=== PATIENT | male | born 1970 | race Two or more races ===

== ENCOUNTER 2021-07-17 21:27 | Inpatient (IN) | payer OTHER ==
[~2021-07-17] VITALS: Ht 185.4 cm; Wt 74.8 kg
--- NOTE | 2021-07-17 21:55 | NUR ---
BIBS C/O LEFT SIDED ABDOMINAL PAIN X1DAY. TOOK ZOFRAN AT NOON WITHOUT RELIEF. PT ALERT AND ORIENTED X4 BREATHING EVEN AND UNLABORED URINE COLLECTED AND SENT TO LAB. ALL V/S STABLE.
[2021-07-17] MEDS ORDERED: MORPHINE SULFATE INJ 2 MG/ML DISP.SYRIN IV ONE (22:30)
[2021-07-17] MEDS ORDERED: ONDANSETRON HCL/PF 4 MG/2 ML VIAL IV ONE (22:30)
[2021-07-17] MEDS ORDERED: ONDANSETRON HCL/PF 4 MG/2 ML VIAL ONE (22:37)
[2021-07-17] MEDS ORDERED: MORPHINE SULFATE INJ 4 MG/ML DISP.SYRIN ONE (22:38)
[2021-07-17] MEDS ORDERED: IV NS 0.9% 1,000 ML BAG IV ONE (23:00)
[2021-07-17 23:06] LABS: BILIRUBIN,URINE NEGATIVE (NEGATIVE); COLOR,URINE YELLOW (YELLOW); LEUKOCYTE ESTERASE ,URINE NEGATIVE (NEGATIVE); NITRITE, URINE NEGATIVE (NEGATIVE); PROTEIN,URINE 100 mg/dl (NEGATIVE); UGLUCOSE NEGATIVE (NEGATIVE); UROBILINOGEN,URINE 0.2 EU/dL (0.2)
[2021-07-17 23:13] LABS: BASOPHILS % (AUTO) 0.4 % (0.0-2.0); EOSINOPHILS % (AUTO) 0.7 % (0.0-6.0); HEMATOCRIT 36 % (39-51); HEMOGLOBIN 10.1 g/dL (13.5-17.5); LYMPHOCYTES # (AUTO) 1.2 K/uL (0.8-4.8); LYMPHOCYTES % (AUTO) 11.1 % (20.0-44.0); MEAN CORPUSCULAR HGB CONC 28 g/dl (31.0-36.0); MEAN CORPUSCULAR VOLUME 67 fL (80-96); MONOCYTES # (AUTO) 0.7 K/uL (0.1-1.30); MONOCYTES % (AUTO) 6.4 % (2.0-12.0); NEUTROPHILS % (AUTO) 81.4 % (43.0-81.0); PLATELET COUNT (AUTO) 279 K/uL (150-450); RED BLOOD CELL COUNT(AUTO) 5.36 MIL/uL (4.5-6.0); WHITE BLOOD COUNT (AUTO) 11.1 K/uL (4.3-11.0)
[2021-07-17 23:25] LABS: BACTERIA,URINE None seen /HPF (None Seen); CALCIUM OXALATE CRYSTALS,UR Many /HPF (None Seen); RBC,URINE 0-2 /HPF (0-2); SQUAMOUS EPITHELIAL CELL,UR Few /HPF (None Seen); WBC,URINE 0-2 /HPF (0-3)
[2021-07-17 23:26] LABS: HYALINE CASTS, URINE Few /LPF (None Seen); MUCUS,URINE Moderate /LPF (None Seen)
[2021-07-17] MEDS ORDERED: LIDOCAINE VISCOUS 2% UD 15 ML UDC ONE (23:30)
--- NOTE | 2021-07-17 23:47 | NUR ---
16FR NG TUBE PLACED AT 65 IN R NARE. PLACEMENT CONFIRMED VIA AUSCULTATION. ORDER PLACED FOR JOYCE BECERRA. Addendum: 07/18/21 at 0008 by BREANN 16FR NG TUBE PLACED AT 53 IN R NARE. PLACEMENT CONFIRMED VIA AUSCULTATION. ORDER PLACED FOR JOYCE BECERRA.
--- NOTE | 2021-07-17 23:51 | NUR ---
YELENA MEYER AT PT'S BEDSIDE FOR NGT PLACEMENT
[2021-07-18] MEDS ORDERED: LIDOCAINE VISCOUS 2% UD 15 ML UDC ONE (00:01)
--- NOTE | 2021-07-18 00:13 | NUR ---
XRAY AT BEDSIDE
[2021-07-18 00:20] LABS: EOSINOPHILS % (MANUAL) 1 % (0-4); LYMPHOCYTES % (MANUAL) 9 % (16-48); MONOCYTES % (MANUAL) 5 % (0-11.0); NEUTROPHILS % (MANUAL) 85 (42-76)
[2021-07-18 00:30] LABS: ALANINE AMINOTRANSFERASE 26 U/L (12-78); ALBUMIN 3.7 g/dL (3.4-5.0); ALKALINE PHOSPHATASE 115 U/L (46-116); ASPARTATE AMINOTRANSFERASE 24 U/L (15-37); BILIRUBIN,DIRECT 0.2 mg/dL (0.0-0.2); BILIRUBIN,TOTAL 0.6 mg/dL (0.2-1.0); CARBON DIOXIDE 19 mmol/L (21-32); CHLORIDE 112 mmol/L (98-107); CREATININE 1.2 mg/dL (0.6-1.3); GLUCOSE 162 mg/dL (74-106); POTASSIUM 3.7 mmol/L (3.5-5.1); SODIUM SERUM 143 mmol/L (136-145); TOTAL PROTEIN, SERUM 7.5 g/dL (6.4-8.2); UREA NITROGEN, BLOOD 16 mg/dL (7-18)
--- NOTE | 2021-07-18 00:47 | NUR ---
NG TUBE ADVANCED 7CM PER RADIOLOGIST RECOMMENDATION. 16FR R ALBIN CURRENTLY AT 60.
--- NOTE | 2021-07-18 00:50 | NUR ---
[facility] PAGED
[2021-07-18] MEDS ORDERED: MORPHINE SULFATE INJ 4 MG/ML DISP.SYRIN ONE (00:57)
[2021-07-18] MEDS ORDERED: MORPHINE SULFATE INJ 2 MG/ML DISP.SYRIN IV ONE (01:00)
[2021-07-18 01:05] LABS: LIPASE > 1500 U/L (73-393)
--- NOTE | 2021-07-18 01:31 | NUR ---
[facility] PAGED ONCE AGAIN, WILL F/U
--- NOTE | 2021-07-18 01:35 | NUR ---
DEANGELO PATIÑO NURSES EDUCATOR WITH IAIN CASTILLO
--- NOTE | 2021-07-18 01:43 | NUR ---
[facility] PAGED
--- NOTE | 2021-07-18 01:50 | NUR ---
ASSIGNED TO 313-2
--- NOTE | 2021-07-18 02:02 | NUR ---
DR. CARIAS SPEAKING TO DR. CRAWFORD
[2021-07-18] MEDS ORDERED: IV NS 0.9% 1,000 ML IV PRN (02:30)
[2021-07-18] MEDS ORDERED: ACETAMINOPHEN 325 MG TABLET PO PRN (02:30)
--- NOTE | 2021-07-18 02:37 | NUR ---
REPORT GIVEN TO THOMAS FOR BONILLA.
[2021-07-18 02:52] VITALS: BP 142/85
--- NOTE | 2021-07-18 02:52 | NUR ---
MS RN RECEIEVING NOTE PATIENT RECEIVED FROM THE ER VIA [facility]. PATIENT RECEIVED STABLE W/ VS WNL. PATIENT A/OX4. NO S/S OF DISTRESS, BREATHING SYMMETRICAL. PATIENT APPEARS IN A PLEASANT AND HUMOROUS MOOD, BUT IS IN PAIN 9/10. NGT 16F IN RIGHT NARIS @60 INCHES. PATIENT IS SET TO WALL SUCTION VIA NGT W/ LOW INTERMITTENT SUCTIONING. IV ACCESS AT LW #20. PATIENT STARTED ON NS AT 75ML/HR. PATIENT IS KEPT NPO FOR NOW PER MD ORDER & D/T SBO AND PANCREATITIS. HE IS AMBULATORY W/ STANDBY ASSIST. PATIENT ORIENTED TO THE UNIT, GIVEN AND INSTRUCTED TYPING OFFICE WORKER DOSHI USE. SAFETY MEASURES IN PLACE: BED AT LOWEST POSITION, RAILS UP X2, CALL DOSHI WITHIN REACH. WILL CONTINUE TO MONITOR.
[2021-07-18 02:55] VITALS: BP 142/85
--- NOTE | 2021-07-18 03:02 | NUR ---
PT TRANSPORTED TO ROOM 313 WITHOUT INCIDENT. ALL PT BELONGINGS TRANSFERRED WITH PATIENT.
[2021-07-18] MEDS: ONDANSETRON HCL/PF 4 MG/2 ML VIAL IVP PRN ×3 (03:27→23:35)
[2021-07-18] MEDS: MORPHINE SULFATE INJ 2 MG/ML DISP.SYRIN IV PRN ×2 (03:28→07:38)
--- NOTE | 2021-07-18 06:29 | NUR ---
MS RN CLOSING NOTE PATIENT IN BED AWAKE. A/OX4. NO S/S OF DISTRESS, BREATHING SYMMETRICAL. LW #20 NS @75 ML/HR INTACT AND PATENT. SAFETY MEASURES IN PLACE: BED AT LOWEST POSITION, RAILS UP X2, CALL DOSHI WITHIN REACH. WILL ENDORSE TO NEXT SHIFT FOR BONILLA.
[2021-07-18 06:52] LABS: BASOPHILS % (AUTO) 0.1 % (0.0-2.0); EOSINOPHILS % (AUTO) 0.5 % (0.0-6.0); HEMATOCRIT 32 % (39-51); HEMOGLOBIN 9.3 g/dL (13.5-17.5); LYMPHOCYTES # (AUTO) 0.9 K/uL (0.8-4.8); MEAN CORPUSCULAR HGB CONC 29 g/dl (31.0-36.0); MEAN CORPUSCULAR VOLUME 67 fL (80-96); MONOCYTES # (AUTO) 0.8 K/uL (0.1-1.30); MONOCYTES % (AUTO) 7.8 % (2.0-12.0); NEUTROPHILS # (AUTO) 8.1 K/uL (1.8-8.9); NEUTROPHILS % (AUTO) 82.6 % (43.0-81.0); PLATELET COUNT (AUTO) 250 K/uL (150-450); RED BLOOD CELL COUNT(AUTO) 4.82 MIL/uL (4.5-6.0); WHITE BLOOD COUNT (AUTO) 9.8 K/uL (4.3-11.0)
[2021-07-18 07:07] LABS: ALANINE AMINOTRANSFERASE 23 U/L (12-78); ALBUMIN 3.2 g/dL (3.4-5.0); ALKALINE PHOSPHATASE 102 U/L (46-116); ASPARTATE AMINOTRANSFERASE 24 U/L (15-37); BILIRUBIN,TOTAL 0.4 mg/dL (0.2-1.0); CALCIUM, SERUM 8.3 mg/dL (8.5-10.1); CARBON DIOXIDE 15 mmol/L (21-32); CHLORIDE 115 mmol/L (98-107); CREATININE 0.9 mg/dL (0.6-1.3); GLUCOSE 123 mg/dL (74-106); MAGNESIUM 2.2 mg/dL (1.8-2.4); PHOSPHORUS 2.6 mg/dL (2.5-4.9); POTASSIUM 4.3 mmol/L (3.5-5.1); TOTAL PROTEIN, SERUM 6.7 g/dL (6.4-8.2); UREA NITROGEN, BLOOD 15 mg/dL (7-18)
[2021-07-18 07:15] LABS: CHOLESTEROL 85 mg/dL (<200); HDL CHOLESTEROL 33 mg/dL (40-60); LDL 47 mg/dL (0-99); TRIGLYCERIDES 110 mg/dL (30-150)
--- NOTE | 2021-07-18 07:30 | NUR ---
MS RN OPENING NOTE RECEIVED PATIENT IN BED AWAKE. A/OX4. COMPLAINS OF PAIN. WILL GIVE MORPHINE TANNER. BREATHING EVEN AND UNLABORED. LW #20 NS @75 ML/HR INTACT AND PATENT.PATIENT NPO. SAFETY MEASURES IN PLACE: BED AT LOWEST POSITION, RAILS UP X2, CALL DOSHI WITHIN REACH. WILL CONTINUE TO MONITOR.
[2021-07-18] MEDS ORDERED: FAMO20TA8 PO (08:12)
[2021-07-18] MEDS ORDERED: OMEP20TA5 PO (08:12)
[2021-07-18] MEDS ORDERED: VENL75CA62 PO (08:12)
[2021-07-18 08:36] LABS: LIPASE > 1500 U/L (73-393); SODIUM SERUM 142 mmol/L (136-145)
[2021-07-18] MEDS: PANTOPRAZOLE 40 MG VIAL IV SCH ×2 (09:12→09:15)
--- NOTE | 2021-07-18 11:00 | NUR ---
RN NOTES NEW ORDER FOR ATIVAN 1MG IV EVERY 8 HOURS PRN GIVEN BY JETHRO LOZANO.
[2021-07-18] MEDS: HYDROMORPHONE 1 MG/1 ML DISP.SYRIN IV PRN ×3 (11:12→20:34)
[2021-07-18 11:30] LABS: IRON, SERUM 12 ug/dl (50-175); TOTAL IRON BINDING CAPACITY 339 ug/dl (250-450)
[2021-07-18] MEDS: IV NS 0.9% 1,000 ML IV PRN (18:30)
--- NOTE | 2021-07-18 19:30 | NUR ---
MS RN CLOSING NOTE PATIENT IN BED AWAKE. A/OX4. NO PAIN NOTED AT THIS TIME. BREATHING EVEN AND UNLABORED. PATIENT ABLE TO AMBULATE TO BATHROOM.LW #20 NS @125 ML/HR INTACT AND PATENT.PATIENT NPO. SAFETY MEASURES IN PLACE: BED AT LOWEST POSITION, RAILS UP X2, CALL DOSHI WITHIN REACH.ALL DUE MEDS GIVEN ORDERED. WILL ENDORSE TO INCOMING SHIFT FOR BONILLA.
[2021-07-18 20:00] VITALS: BP 126/81
--- NOTE | 2021-07-18 20:02 | NUR ---
RN OPENING NOTES RECEIVED PT IN BED, AWAKE. AOx4, ABLE TO MAKE NEEDS KNOWN. ON RA AND TOLERATING WELL. NO SOB NOTED. NO S/SX OF RESPIRATORY DISTRESS NOTED. IV ACCESS IN L WRIST #20 RUNNING NS @125 ML/HR. SAFETY PRECAUTIONS IN PLACE: BED IN LOWEST, LOCKED POSITION, BRAKES ON. SIDERAILS UPx2, AND BRAKES ON. TABLE AND CALL LIGHT WITHIN REACH. WILL CONTINUE TO MONITOR.
[2021-07-18] MEDS ORDERED: LORAZEPAM INJ 2 MG/ML VIAL IV PRN (20:30)
--- NOTE | 2021-07-18 20:34 | NUR ---
ADMINISTERED DILAUDID PER MD ORDER. VS WNL. WILL CONTINUE TO MONITOR.
--- NOTE | 2021-07-18 23:35 | NUR ---
ADMINISTERED ZOFRAN AND ATIVAN PER MD ORDER. VS WNL. WILL CONTINUE TO MONITOR.
[2021-07-19] MEDS: IV NS 0.9% 1,000 ML IV PRN ×3 (02:34→22:31)
--- NOTE | 2021-07-19 07:25 | NUR ---
REPORT GIVEN. PT STABLE.
--- NOTE | 2021-07-19 07:30 | NUR ---
MS RN OPENING NOTES RECEIVED PATIENT IN BED, AWAKE, NO SIGNS OF ACUTE DISTRESS NOTED. ON ROOM AIR, TOLERATING WELL. NO C/O PAIN OR DISCOMFORT AT THIS TIME. WITH NG TUBE ON RIGHT NARE CONNECTED TO INTERMITTENT SUCTION. ON NPO. IV ACCESS ON RIGHT HAND INTACT AND PATENT, NS @125 ML/HR RUNNING, TOLERATING WELL. SAFETY MEASURES IN PLACE. WILL CONTINUE TO MONITOR.
[2021-07-19 08:26] LABS: CALCIUM, SERUM 8.1 mg/dL (8.5-10.1); CREATININE 0.9 mg/dL (0.6-1.3)
[2021-07-19 08:50] VITALS: BP 122/63
[2021-07-19] MEDS: PANTOPRAZOLE 40 MG VIAL IV SCH (09:00)
[2021-07-19] MEDS: HYDROMORPHONE 1 MG/1 ML DISP.SYRIN IV PRN ×4 (09:06→22:07)
[2021-07-19 11:58] LABS: POTASSIUM 3.5 mmol/L (3.5-5.1)
[2021-07-19] MEDS: ONDANSETRON HCL/PF 4 MG/2 ML VIAL IVP PRN ×2 (12:39→18:42)
[2021-07-19] MEDS: SOD FERRIC GLUC 125 MG in IV NS 0.9% 100 ML IV SCH (14:39)
[2021-07-19 16:52] VITALS: BP 141/70
[2021-07-19] MEDS ORDERED: DIATR MEGLU/DIATRIZOATE SODIUM 120 ML BOTTLE (GASTROGRAPHIN) ONE (16:58)
--- NOTE | 2021-07-19 17:00 | NUR ---
RN NOTES PATIENT PICKED-UP BY [employer] FOR XR SMALL BOWEL FOLLOW THROUGH.
--- NOTE | 2021-07-19 18:40 | NUR ---
RN NOTES PATIENT BACK FROM [facility] PROCEDURE. PER PATIENT NG-TUBE WAS ACCIDENTALLY PULLED OUT WHEN THEY WERE DOING THE PROCEDURE. PATIENT REQUESTING IF OK NOT TO PUT NGT FOR NOW. MD JETHRO LOZANO, MADE AWARE. PER , IF SBFT + FOR BOWEL OBSTRUCTION PATIENT MAY NEED NGT WITH INTERMITTENT LOW SUCTION. PATIENT MADE AWARE.
[2021-07-19] MEDS: LORAZEPAM INJ 2 MG/ML VIAL IV PRN (18:42)
--- NOTE | 2021-07-19 19:01 | NUR ---
MS RN CLOSING NOTES PATIENT IN BED, AWAKE, NO SIGNS OF ACUTE DISTRESS NOTED. ON ROOM AIR, TOLERATING WELL. NO C/O PAIN OR DISCOMFORT AT THIS TIME. ON NPO BUT OK TO HAVE ICE CHIPS. IV ACCESS ON RIGHT HAND INTACT AND PATENT, NS @125 ML/HR RUNNING, TOLERATING WELL. MEDICATED FOR PAIN AND NAUSEA ORDERED. SAFETY MEASURES IN PLACE. BED LOCKED AND IN LOWEST POSITION, SR UP, CALL LIGHT PLACED WITHIN EASY REACH. WILL ENDORSE TO NEXT SHIFT.
--- NOTE | 2021-07-19 19:10 | NUR ---
RN NOTES; RECEIVED AWAKE ON BED, PLEASANT PERSONALITY, A/OX4, CONVERSANT, ORIENTED TO UNIT AN STAFF, IV CANNULA RH G#20 IVF OF NS AT 125 ML/HR ONGOING, AMBULATORY, SKIN IS INTACT, PER ENDORSEMENT HE REFUSE FOR NGT RE-INSERTION, IS AWARE, PER ENDORSEMENT SMALL BOWEL FOLLOW THROUGH DONE, IF RESULT HAS SMALL BOWEL OBSTRUCTION, NEED TO REINSERT NG-TUBE, BUT IF NOT NO NEED TO REINSERT NGT. -PATIENT IS STABLE NO PAIN OR DISCOMFORT AT THIS TIME, KEPT MONITORED.
[2021-07-19 20:00] VITALS: BP 125/70
--- NOTE | 2021-07-19 22:07 | NUR ---
RN NOTES: -ASKING FOR HIS ZOFRAN BUT HE IS NOT YET DUE,HE VERBALIZED HE HAS PAIN AND ASKING FOR HIS PAIN MEDICATION, REQUEST FOR HIS IV PAIN MEDS, GIVEN PER PATIENT REQUEST.
--- NOTE | 2021-07-19 22:31 | NUR ---
RN NOTES: IVF CONSUMED, STARTED WITH NEW BOTTLE, UNABLE TO SCAN, MANUALLY ENTER THE BARCODE,NS AT 125 ML/HR, VIA INFUSION PUMP.
[2021-07-20] MEDS: ONDANSETRON HCL/PF 4 MG/2 ML VIAL IVP PRN ×3 (00:42→23:05)
--- NOTE | 2021-07-20 00:43 | NUR ---
RN NOTES: FEELING NAUSEATED, NO VOMITING, REQUEST FOR HIS ZOFRAN, GIVEN.
[2021-07-20 07:41] LABS: CALCIUM, SERUM 8.1 mg/dL (8.5-10.1); CREATININE 0.8 mg/dL (0.6-1.3); POTASSIUM 3.2 mmol/L (3.5-5.1)
--- NOTE | 2021-07-20 07:50 | NUR ---
MS RN OPENING NOTE Patient in bed, asleep. A/O x 4. On room air, breathing evenly and unlabored. No SOB or s/s of distress noted. IV access on Right hand #20G infusing NS at 125 ml/hr. NPO status maintained. Safety precautions in place: bed in low, locked position; sideraisl up x 2; call light within reach. will continue to monitor.
--- NOTE | 2021-07-20 07:52 | NUR ---
RN NOTES: ABLE TO SLEEP AND REST, NO MORE NAUSEA AND VOMITING, FOR LABS THIS MORNING, CONTINUE HYDRATION, ENDORSED TO MORNING SHIFT NURSE RESULT YESTERDAY OF X-RAY ABDOMEN NO EVIDENCE OF SBO, NGT NOT REINSERT ANYMORE, F/U IN THE MORNING IF HE STILL NEED,ENDORSED FOR CONTINUITY OF CARE.
[2021-07-20 08:00] VITALS: BP 106/70
--- NOTE | 2021-07-20 08:58 | NUR ---
RN NOTE Patient complained of Nausea, PRN Zofran given. will continue to monitor.
[2021-07-20] MEDS: PANTOPRAZOLE 40 MG VIAL IV SCH (08:59)
[2021-07-20] MEDS: HYDROMORPHONE 1 MG/1 ML DISP.SYRIN IV PRN ×4 (09:00→20:56)
[2021-07-20] MEDS: IV NS 0.9% 1,000 ML IV PRN ×2 (09:05→23:05)
[2021-07-20] MEDS: POTASSIUM CL. PREMIX PERIPHER. 50 ML IV SCH ×4 (10:11→13:13)
[2021-07-20] MEDS: SOD FERRIC GLUC 125 MG in IV NS 0.9% 100 ML IV SCH (14:52)
[2021-07-20 16:00] VITALS: BP 121/70
[2021-07-20] MEDS ORDERED: HYDROCODONE/APAP 5/325MG TABLET PO PRN (19:00)
--- NOTE | 2021-07-20 19:25 | NUR ---
MS RN OPENING NOTE: RECEIVED REPORT AT PATIENT'S BEDSIDE. PATIENT IS AWAKE, A&OX4, COMMUNICATIVE. IN NAD AND VSS AT THIS TIME. C/O LOWER ABDOMINAL PAIN 6-8/10 PER PATIENT REPORTS. PATIENT ABLE TO AMBULATE INDEPENDENTLY WITH STEADY GAIT. NORMOACTIVE BS X4. PATIENT ABLE TO TOLERATE CLEAR LIQUIDS WITHOUT COMPLICATION (N/V/D). BED IN LOW/LOCKED POSITION. HOB ELEVATED TO SEMI-FOWLERS POSITION. SIDE RAILS UP X2. PATIENT DEMONSTRATES ABILITY TO USE CALL LIGHT AND VERBALIZE NEEDS EFFECTIVELY. CALL LIGHT AND FREQUENTLY USED ITEMS WITHIN REACH.
--- NOTE | 2021-07-20 19:45 | NUR ---
MS RN CLOSING NOTE Patient in bed, asleep. A/O x 4. On room air, breathing evenly and unlabored. No SOB or s/s of distress noted. IV access on Right hand #20G infusing NS at 125 ml/hr. Diet changed to Clear liquids. Pain meds given when needed. All needs attended to. Due meds given. Safety precautions in place: bed in low, locked position; sideraisl up x 2; call light within reach. Will endorse to table games shift manager nurse for BONILLA.
[2021-07-20 20:00] VITALS: BP 137/76
[2021-07-20] MEDS: LORAZEPAM INJ 2 MG/ML VIAL IV PRN (23:06)
--- NOTE | 2021-07-21 00:52 | NUR ---
MS RN NOTE: PATIENT'S R HAND OBSERVED TO BE SWOLLEN. D/C'D R HAND IV INFUSING FLUIDS. D/C'D L WRIST IV IV HURT/BOTHERS PATIENT PER HIS REPORT. NEW IV STARTED TO R INNER FA, 2O GAUGE ON FIRST ATTEMPT, POSITIVE BLOOD RETURN OBSERVED. IV CONTINUOUS FLUIDS RESUMED WITHOUT COMPLICATION.
[2021-07-21] MEDS: HYDROMORPHONE 1 MG/1 ML DISP.SYRIN IV PRN ×5 (01:11→19:50)
[2021-07-21 07:22] LABS: CALCIUM, SERUM 8.1 mg/dL (8.5-10.1); CREATININE 0.8 mg/dL (0.6-1.3); POTASSIUM 3.2 mmol/L (3.5-5.1)
--- NOTE | 2021-07-21 07:39 | NUR ---
MS RN CLOSING NOTE: REPORTED OFF TO AM SHIFT RN AT PATIENT'S BEDSIDE. PATIENT IS AWAKE, A&OX4, COMMUNICATIVE. IN NAD AND VSS AT THIS TIME. PATIENT MEDICATED WITH PRN ANALGESICS FOR C/O PAIN AND ATIVAN 1MG IVP FOR C/O ANXIETY AND RESTLESSNESS. PATIENT ABLE TO AMBULATE INDEPENDENTLY WITH STEADY GAIT. NORMOACTIVE BS X4. PATIENT ABLE TO TOLERATE CLEAR LIQUIDS WITHOUT COMPLICATION (NO N/V/D). BED IN LOW/LOCKED POSITION. HOB ELEVATED TO SEMI-FOWLERS POSITION. SIDE RAILS UP X2. PATIENT DEMONSTRATES ABILITY TO USE CALL LIGHT AND VERBALIZE NEEDS EFFECTIVELY. CALL LIGHT AND FREQUENTLY USED ITEMS WITHIN REACH.
--- NOTE | 2021-07-21 07:43 | NUR ---
RN OPENING NOTES PATIENT AWAKE IN BED RESTING, A/O X4. NO S/S OF PAIN NOTED AT THIS TIME. ON ROOM AIR, NO DISTRESS OR SHORTNESS OF BREATH NOTED. IV ACCESS LFA #20G, INTACT, PATENT AND FLUSHING WELL. FALL AND SAFETY MEASURES IN PLACE, BED ALARM ON, BED IN LOW AND LOCK POSITION, CALL LIGHT AND TABLE WITHIN EASY REACH, SIDE RAILS UP X2. WILL CONTINUE TO MONITOR.
[2021-07-21 08:00] VITALS: BP 109/73
[2021-07-21] MEDS: ONDANSETRON HCL/PF 4 MG/2 ML VIAL IVP PRN ×2 (08:16→15:21)
[2021-07-21] MEDS: PANTOPRAZOLE 40 MG VIAL IV SCH (08:17)
[2021-07-21] MEDS ORDERED: PANTOPRAZOLE 40 MG TABLET.DR PO SCH (09:00)
[2021-07-21] MEDS ORDERED: POTASSIUM CHLORIDE 20 MEQ POWDER PACKET PO ONE (10:00)
[2021-07-21] MEDS: VENLAFAXINE XR 75 MG CAP.SR.24H PO SCH (11:51)
[2021-07-21] MEDS ORDERED: POTASSIUM CHLORIDE 20 MEQ POWDER PACKET PO SCH (14:00)
[2021-07-21] MEDS: SOD FERRIC GLUC 125 MG in IV NS 0.9% 100 ML IV SCH (15:22)
[2021-07-21 16:00] VITALS: BP 138/84
--- NOTE | 2021-07-21 18:38 | NUR ---
RN CLOSING NOTES PATIENT AWAKE IN BED RESTING, A/O X4. NO S/S OF PAIN NOTED AT THIS TIME. ON ROOM AIR, NO DISTRESS OR SHORTNESS OF BREATH NOTED. IV ACCESS LFA #20G, INTACT, PATENT AND FLUSHING WELL. FALL AND SAFETY MEASURES IN PLACE, BED ALARM ON, BED IN LOW AND LOCK POSITION, CALL LIGHT AND TABLE WITHIN EASY REACH, SIDE RAILS UP X2. WILL ENDORSE TO TRUCK DRIVER INSTRUCTOR.
--- NOTE | 2021-07-21 19:20 | NUR ---
MS RN OPENING NOTE: RECEIVED REPORT AT PATIENT'S BEDSIDE. PATIENT IS AWAKE, A&OX4, COMMUNICATIVE. IN NAD AND VSS AT THIS TIME. C/O INTERMITTENT LOWER ABDOMINAL PAIN 6-8/10 PER PATIENT REPORTS. PATIENT ABLE TO AMBULATE INDEPENDENTLY WITH STEADY GAIT. NORMOACTIVE BS X4. NO ABDOMINAL DISTENTION OBSERVED. L INNER FA IV #20 GAUGE INFUSING IV FLUIDS WITHOUT COMPLICATION. NO S/SX OF ERYTHEMA/INFILTRATION TO OR SURROUNDING IV INSERTION SITE. DRESSING TO SITE C/D/I. PATIENT ABLE TO TOLERATE CLEAR LIQUIDS AND SOME SOFT FOODS WITHOUT COMPLICATION (NO N/V/D). BED IN LOW/LOCKED POSITION. HOB ELEVATED TO SEMI-FOWLERS POSITION. SIDE RAILS UP X2. PATIENT DEMONSTRATES ABILITY TO USE CALL LIGHT AND VERBALIZE NEEDS EFFECTIVELY. CALL LIGHT AND FREQUENTLY USED ITEMS WITHIN REACH.
[2021-07-21] MEDS: LORAZEPAM INJ 2 MG/ML VIAL IV PRN (19:50)
[2021-07-21 20:00] VITALS: BP 128/79
[2021-07-22] MEDS: HYDROMORPHONE 1 MG/1 ML DISP.SYRIN IV PRN ×3 (01:08→10:01)
[2021-07-22] MEDS: ONDANSETRON HCL/PF 4 MG/2 ML VIAL IVP PRN (05:52)
[2021-07-22] MEDS: LORAZEPAM INJ 2 MG/ML VIAL IV PRN (05:52)
[2021-07-22] MEDS ORDERED: PANTOPRAZOLE 40 MG TABLET.DR PO SCH (07:30)
--- NOTE | 2021-07-22 07:30 | NUR ---
MS RN OPENING NOTES RECEIVED PATIENT ON BED AWAKE AND A/O X4. ON ROOM AIR TOLERATING WELL. NO SOB NOTED. NOT IN DISTRESS. WITH NO COMPLAINTS OF PAIN OR DISCOMFORT AT THIS TIME. WITH IV ACCESS AT LEFT FOREARM G20 SALINE LOCKED, PATENT AND INTACT. SAFETY MEASURES IN PLACED. CALL LIGHT WITHIN REACH. BED ON LOWEST LOCKED POSITION, SIDE RAILS UP X2. WILL CONTINUE TO MONITOR.
--- NOTE | 2021-07-22 07:35 | NUR ---
MS RN CLOSING NOTE: PATIENT'S EYES CLOSED, RR EVEN AND UNLABORED. IN NAD AND VSS AT THIS TIME. MEDICATED PRN ATC FOR C/O NAUSEA, RESTLESSNESS AND PAIN. PATIENT ABLE TO AMBULATE INDEPENDENTLY WITH STEADY GAIT. NORMOACTIVE BS X4. NO ABDOMINAL DISTENTION OBSERVED. L INNER FA IV #20 GAUGE SL. FLUSHED AND PATENT. NO S/SX OF ERYTHEMA/INFILTRATION TO OR SURROUNDING IV INSERTION SITE. DRESSING TO SITE C/D/I. PATIENT ABLE TO TOLERATE CLEAR LIQUIDS AND SOME SOFT FOODS WITHOUT COMPLICATION (NO N/V/D). BED IN LOW/LOCKED POSITION. HOB ELEVATED TO SEMI-FOWLERS POSITION. SIDE RAILS UP X2. PATIENT DEMONSTRATES ABILITY TO USE CALL LIGHT AND VERBALIZE NEEDS EFFECTIVELY. CALL LIGHT AND FREQUENTLY USED ITEMS WITHIN REACH.
[2021-07-22 08:00] VITALS: BP 108/74
[2021-07-22 08:08] LABS: CALCIUM, SERUM 8.7 mg/dL (8.5-10.1); CREATININE 0.9 mg/dL (0.6-1.3); POTASSIUM 3.3 mmol/L (3.5-5.1)
[2021-07-22 08:18] LABS: MAGNESIUM 1.8 mg/dL (1.8-2.4)
[2021-07-22] MEDS: VENLAFAXINE XR 75 MG CAP.SR.24H PO SCH (08:55)
[2021-07-22] MEDS ORDERED: POTASSIUM CHLORIDE 20 MEQ POWDER PACKET PO SCH (10:00)
--- NOTE | 2021-07-22 13:08 | NUR ---
MS AERONAUTICAL PROJECT ENGINEER NOTES PATIENT WAS SEEN BY DR. LOZANO AND ORDERED PATIENT FOR DISCHARGE TO HOME. DISCHARGE INSTRUCTION AND EDUCATION PROVIDED TO PATIENT AND EXPLAINED MEDICATIONS AND PRESCRIPTIONS. PATIENT VERBALIZED UNDERSTANDING. DISCHARGE FORM AND BELONGINGS LIST FORM SIGNED BY PATIENT. ALL BELONGINGS ACCOUNTED FOR. NAME WRIST BAND AND IV LINE REMOVED. ACCOMPANIED PATIENT TO THE [facility] AMBULATORY. PATIENT WAS PICKED UP BY HIS MOM AND LEFT IN STABLE CONDITION. MD AND CHARGE NURSE ARE AWARE OF THE DISCHARGE.
== END 2021-07-22 13:00 | disposition home or self-care (01) | DRG 439 ==
LOC: ER 21:35 → MED 07-18 01:55
PROVIDERS: ADMIT Nurse Practitioner Acute Care; ATTEND Nurse Practitioner Acute Care
DX: K85.90 Acute pancreatitis without necrosis or infection, unspecified (principal); K50.90 Crohn's disease, unspecified, without complications; Z90.49 Acquired absence of other specified parts of digestive tract; K21.9 Gastro-esophageal reflux disease without esophagitis; D50.9 Iron deficiency anemia, unspecified; E87.6 Hypokalemia; R73.9 Hyperglycemia, unspecified; K43.9 Ventral hernia without obstruction or gangrene; Z20.822 Contact with and (suspected) exposure to COVID-19; Z79.899 Other long term (current) drug therapy
CPT/HCPCS: 36415; 74018; 74250-TC; 80048-TC; 80053-TC; 80061-TC; 80076-TC; 81001; 83540-TC; 83690-TC; 83735-TC; 84100-TC; 85025-TC; 87081-TC; 93307-TC; C9113; C9803; G0378; J1170; J2060; J2270; J2405; J2916; J3480; J7030; J7050; Q9963

== ENCOUNTER 2021-09-26 21:58 | Inpatient (IN) | payer OTHER ==
[~2021-09-26] VITALS: Ht 185.4 cm; Wt 95.4 kg
[~2021-09-26 21:58] MED LIST: FAMO20TA8 PO; OMEP20TA5 PO; VENL75CA62 PO
--- NOTE | 2021-09-26 22:09 | NUR ---
[id number] FROM HOME C/O LEFT SIDED ABDOMINAL PAIN X1DAY +N/V/D. PATIENT ALERT AND ORIENTED X3. AMBULATORY WITH NON LABORED BREATHING AWAITING MD WOO
--- NOTE | 2021-09-26 22:13 | NUR ---
URINE COLLECTED AND SENT TO LAB
--- NOTE | 2021-09-26 22:20 | NUR ---
20G IV LINE STABLISHED AT [facility]. BLOOD DRAWN AND SENT TO LAB.
[2021-09-26] MEDS ORDERED: IV NS 0.9% 1,000 ML BAG IV ONE (22:30)
[2021-09-26] MEDS ORDERED: ONDANSETRON HCL/PF 4 MG/2 ML VIAL IVP ONE (22:30)
[2021-09-26] MEDS ORDERED: MORPHINE SULFATE INJ 2 MG/ML DISP.SYRIN IV ONE (22:30)
[2021-09-26] MEDS ORDERED: ONDANSETRON HCL/PF 4 MG/2 ML VIAL ONE (22:31)
[2021-09-26] MEDS ORDERED: MORPHINE SULFATE INJ 4 MG/ML DISP.SYRIN ONE (22:31)
[2021-09-26 22:41] LABS: BASOPHILS % (AUTO) 0.4 % (0.0-2.0); EOSINOPHILS % (AUTO) 1.6 % (0.0-6.0); HEMATOCRIT 38 % (39-51); LYMPHOCYTES # (AUTO) 1.9 K/uL (0.8-4.8); LYMPHOCYTES % (AUTO) 22.3 % (20.0-44.0); MEAN CORPUSCULAR HGB CONC 29 g/dl (31.0-36.0); MEAN CORPUSCULAR VOLUME 62 fL (80-96); MONOCYTES # (AUTO) 0.5 K/uL (0.1-1.30); MONOCYTES % (AUTO) 6.3 % (2.0-12.0); NEUTROPHILS % (AUTO) 69.4 % (43.0-81.0); PLATELET COUNT (AUTO) 251 K/uL (150-450); RED BLOOD CELL COUNT(AUTO) 6.06 MIL/uL (4.5-6.0); WHITE BLOOD COUNT (AUTO) 8.7 K/uL (4.3-11.0)
[2021-09-26 22:41] LABS: BILIRUBIN,URINE NEGATIVE (NEGATIVE); COLOR,URINE YELLOW (YELLOW); LEUKOCYTE ESTERASE ,URINE NEGATIVE (NEGATIVE); NITRITE, URINE NEGATIVE (NEGATIVE); PROTEIN,URINE NEGATIVE (NEGATIVE); UGLUCOSE NEGATIVE (NEGATIVE); UROBILINOGEN,URINE 0.2 EU/dL (0.2)
--- NOTE | 2021-09-26 22:44 | NUR ---
GOING TO CT
--- NOTE | 2021-09-26 22:57 | NUR ---
PT RETURNED FROM CT
[2021-09-26 23:05] LABS: BACTERIA,URINE None seen /HPF (None Seen); MUCUS,URINE Few /LPF (None Seen); RBC,URINE 0-2 /HPF (0-2); SQUAMOUS EPITHELIAL CELL,UR Few /HPF (None Seen); WBC,URINE 0-2 /HPF (0-3)
[2021-09-26 23:11] LABS: ALANINE AMINOTRANSFERASE 25 U/L (12-78); ALBUMIN 3.7 g/dL (3.4-5.0); ALKALINE PHOSPHATASE 124 U/L (46-116); ASPARTATE AMINOTRANSFERASE 18 U/L (15-37); BILIRUBIN,DIRECT 0.1 mg/dL (0.0-0.2); BILIRUBIN,TOTAL 0.5 mg/dL (0.2-1.0); CALCIUM, SERUM 8.8 mg/dL (8.5-10.1); CARBON DIOXIDE 21 mmol/L (21-32); CHLORIDE 107 mmol/L (98-107); CREATININE 0.9 mg/dL (0.6-1.3); GLUCOSE 106 mg/dL (74-106); LIPASE 79 U/L (73-393); POTASSIUM 3.8 mmol/L (3.5-5.1); SODIUM SERUM 141 mmol/L (136-145); TOTAL PROTEIN, SERUM 7.1 g/dL (6.4-8.2); UREA NITROGEN, BLOOD 14 mg/dL (7-18)
[2021-09-27] MEDS ORDERED: LIDOCAINE VISCOUS 2% UD 15 ML UDC ONE ×2 (00:05→05:41)
[2021-09-27] MEDS ORDERED: MORPHINE SULFATE INJ 4 MG/ML DISP.SYRIN ONE ×4 (00:05→07:42)
[2021-09-27] MEDS ORDERED: LIDOCAINE VISCOUS 2% UD 15 ML UDC MM ONE (00:30)
--- NOTE | 2021-09-27 00:40 | NUR ---
hussein gleason md on the phone with dr. gipson
--- NOTE | 2021-09-27 00:44 | NUR ---
NG TUBE 16FR INSERTED AT 65. PLACEMENT CHECHED VIA AUSCULTATION. XRAY ORDERED FOR PLACEMENT CONFIRMATION.
--- NOTE | 2021-09-27 02:05 | NUR ---
CALLED [facility] TO FOLLOW UP REGARDING TRANSFER
--- NOTE | 2021-09-27 02:25 | NUR ---
XRAY RESULT SHOWED COILING OF NGTUBE. DESPITE TUBE READJUSTMENT ATTEMPTS, SECONDARY XRAY SHOWED NGTUBE COILING. NGTUBE REMOVED AND PT DID NOT WISH FOR REINSERTION AT THIS TIME.
[2021-09-27] MEDS ORDERED: MORPHINE SULFATE INJ 2 MG/ML DISP.SYRIN IV ONE ×3 (02:30→05:30)
--- NOTE | 2021-09-27 04:20 | NUR ---
FOLLOWED UP WITH [facility]. WAS TOLD THEY ARE WAITING FOR ROOM AVAILABOLITY AT [facility] AND HAVE NO ETA CURRENTLY.
--- NOTE | 2021-09-27 05:26 | NUR ---
Spoke with Gal, [facility] called to inform that they were unable to find bed at a [facility]. Pt is authorized to stay. auth# [id number]
--- NOTE | 2021-09-27 05:32 | NUR ---
epic panel paged
[2021-09-27] MEDS ORDERED: ACETAMINOPHEN 325 MG TABLET PO PRN (06:00)
[2021-09-27] MEDS ORDERED: Z GUARD REMEDY 4 OZ OINT TP PRN (06:00)
[2021-09-27] MEDS ORDERED: ONDANSETRON HCL/PF 4 MG/2 ML VIAL ONE (07:41)
[2021-09-27] MEDS: ONDANSETRON HCL/PF 4 MG/2 ML VIAL IVP PRN ×4 (07:50→23:05)
[2021-09-27] MEDS: MORPHINE SULFATE INJ 4 MG/ML DISP.SYRIN IV PRN ×3 (07:50→12:00)
[2021-09-27] MEDS: ZOSYN IVPB 3.375 G in IV D5W 50ml IV ONE (07:51)
--- NOTE | 2021-09-27 07:54 | NUR ---
REPORT GIVEN TO NURSE GRAHAM FOR BONILLA
[2021-09-27] MEDS: IV NS 0.9% 1,000 ML IV PRN ×2 (07:57→08:48)
[2021-09-27] MEDS: PANTOPRAZOLE 40 MG TABLET.DR PO SCH (08:00)
[2021-09-27] MEDS ORDERED: PANTOPRAZOLE 40 MG TABLET.DR PO ONE (08:00)
[2021-09-27] MEDS ORDERED: NAPR-1009 PO (08:15)
--- NOTE | 2021-09-27 08:16 | NUR ---
PT TRANSFERRED TO [facility] IN STABLE CONDITION.
[2021-09-27 08:30] VITALS: BP 143/84
--- NOTE | 2021-09-27 09:19 | NUR ---
MS RN ADMITTING NOTES ADMITTED TO UNIT A 51 Y/O MALE VIA GURNEY WITH DIAGNOSIS OF SMALL BOWEL OBSTRUCTION. PT IS A/O X4. ABLE TO MAKE NEEDS KNOWN, VERBALIZED THAT ABDOMINAL PAIN IS TOLERABLE AT THIS TIME. ORIENTED TO STAFF AND UNIT. PT ON ROOM AIR, TOLERATING WELL, BREATHING EVEN AND UNLABORED. PT WITH NGT-TUBE ON LEFT NARE WITH LIGHT BROWNISH SECRETIONS NOTED. IV ACCESS PRESENT ON RAC G#20, IVF OF NS @ 75ML/HR STARTED. PT MAINTAINED ON NPO AT THIS TIME PER MD ORDER. SKIN IS INTACT. LUNGS CLEAR ON AUSCULTATION. ABDOMEN SOFT, SLIGHT DISTENTION ON RIGHT LOWER QUADRANT WITH POSITIVE BOWEL SOUNDS ON FOUR QUADRANTS NOTED. SAFETY MEASURES INITIATED: BED PLACED IN LOWEST LOCKED POSITION, SIDE-RAILS UP X2. AND CALL LIGHT PLACED W/I EASY REACH OF PT. WILL CONTINUE TO MONITOR.
[2021-09-27] MEDS: PIPERACILLIN /TAZOBACTAM 3.375 G in IV D5W 100 ML IV SCH ×2 (11:55→19:55)
[2021-09-27] MEDS ORDERED: DIATR MEGLU/DIATRIZOATE SODIUM 120 ML BOTTLE (GASTROGRAPHIN) ONE (13:39)
[2021-09-27 16:00] VITALS: BP 130/80
[2021-09-27] MEDS: HYDROMORPHONE 1 MG/1 ML DISP.SYRIN IV PRN ×3 (16:16→22:31)
--- NOTE | 2021-09-27 16:17 | NUR ---
RN NOTES PT COMPLAIN OF LEFT SIDE MIDDLE ABDOMINAL PAIN WITH PAIN SCALE LEVEL OF 9/10. DILAUDID GIVEN AT 1MG IVP ORDERED PRN AT 1616. PT ALSO COMPLAINED OF N/V WITH X2 VOMITING, ZOFRAN 4MG IVP GIVEN ORDERED PRN. WILL MONITOR AND REASSESS PT.
--- NOTE | 2021-09-27 16:22 | NUR ---
RN NOTES SPECIMEN FOR MRSA OF RIGHT NARE OBTAINED AND CALLED LAB TO PICK-UP SPECIMEN.
--- NOTE | 2021-09-27 18:23 | NUR ---
MS RN CLOSING NOTES PT AWAKE AND RESTING IN BED AT THIS TIME. A/O X4. ABLE TO MAKE NEEDS KNOWN. AMBULATORY WITH STEADY GAIT. ON ROOM AIR, TOLERATING WELL, BREATHING EVEN AND UNLABORED. NGT-TUBE ON LEFT NARE IN PLACE CONNECTED TO LOW SUCTION WITH LIGHT BROWNISH SECRETIONS NOTED. NPO MAINTAINED ORDERED. IV ACCESS ON RAC G#20, IVF OF NS @ 75ML/HR INFUSING WELL, NO S/SX OF INFILTRATIONS NOTED. ALL NEEDS AND CARE ATTENDED WELL. SAFETY MEASURES INITIATED: BED PLACED IN LOWEST LOCKED POSITION, SIDE-RAILS UP X2 AND CALL LIGHT PLACED W/I EASY REACH OF PT. WILL ENDORSED BONILLA TO AIR PUMPER NURSE.
[2021-09-27 20:00] VITALS: BP 119/76
--- NOTE | 2021-09-27 20:00 | NUR ---
RN NOTES RECEIVED PATIENT IN BED, ALERT/ORIENTED X4, STABLE ON ROOM AIR, ABDOMINAL PAIN, NPO, LOW INTERMITTENT SUCTION VIA NG TUBE, LEFT NARE, BROWNISH OUTPUT, ON DILAUDID 1 MG Q4HRS AND ZOFRAN 4 MG IV PRN, PATIENT REPORTED HAVING BM DURING AM SHIFT, HX OF CROHN'S DISEASE. KEPT SAFE, WILL CONTINUE TO MONITOR.
[2021-09-28] MEDS: HYDROMORPHONE 1 MG/1 ML DISP.SYRIN IV PRN ×7 (00:52→23:39)
[2021-09-28] MEDS: IV NS 0.9% 1,000 ML IV PRN (01:42)
[2021-09-28] MEDS: PIPERACILLIN /TAZOBACTAM 3.375 G in IV D5W 100 ML IV SCH ×3 (04:07→20:05)
--- NOTE | 2021-09-28 06:38 | NUR ---
ALERT/ORIENTED X4, STABLE ON ROOM AIR, DX SMALL BOWEL OBSTRUCTION. REMAINED NPO, NG TUBE CONNECTED TO LOW, INTERMITTENT SUCTION, BROWNISH DRAINAGE, MINIMAL OUTPUT, ABDOMINAL PAIN, DILAUDID 1 MG IV Q3HRS, GIVEN ROUND THE CLOCK, ZOFRAN OF NAUSEA, LIQUID AND SOFT STOOL X4, AMBULATES IN HALLWAY. PER XRAY SMALL BOWEL SERIES, SMALL BOWEL LOOP, NEGATIVE OBSTRUCTION. CONTINUE IVF, ANTIEMETICS, PAIN MANAGEMENT.
[2021-09-28 07:15] LABS: BASOPHILS % (AUTO) 0.3 % (0.0-2.0); EOSINOPHILS % (AUTO) 2.6 % (0.0-6.0); HEMATOCRIT 34 % (39-51); HEMOGLOBIN 9.6 g/dL (13.5-17.5); LYMPHOCYTES # (AUTO) 1.2 K/uL (0.8-4.8); LYMPHOCYTES % (AUTO) 27.1 % (20.0-44.0); MEAN CORPUSCULAR HGB CONC 29 g/dl (31.0-36.0); MEAN CORPUSCULAR VOLUME 64 fL (80-96); MONOCYTES # (AUTO) 0.4 K/uL (0.1-1.30); NEUTROPHILS # (AUTO) 2.6 K/uL (1.8-8.9); PLATELET COUNT (AUTO) 199 K/uL (150-450); RED BLOOD CELL COUNT(AUTO) 5.33 MIL/uL (4.5-6.0); WHITE BLOOD COUNT (AUTO) 4.3 K/uL (4.3-11.0)
--- NOTE | 2021-09-28 07:30 | NUR ---
MS RN OPENING NOTES RECEIVED PATIENT IN BED, ALERT/ORIENTED X4. ON ROOM AIR TOLERATING WELL. NO SOB NOTED. NOT IN DISTRESS. WITH NG-TUBE ON LOW INTERMITTENT SUCTION ON LEFT NARES WITH BROWNISH OUTPUT. WITH NO COMPLAINTS OF PAIN OR DISCOMFORT AT THIS TIME. WITH IV ACCESS AT RIGHT AC G20 WITH NS AT 75ML/HR INFUSING WELL. SAFETY MEASURES IN PLACED. CALL LIGHT WITHIN REACH. BED ON LOWEST LOCKED POSITION, SIDE RAILS UP X2. WILL CONTINUE TO MONITOR.
[2021-09-28 07:35] LABS: ALBUMIN 3.1 g/dL (3.4-5.0); BILIRUBIN,TOTAL 0.6 mg/dL (0.2-1.0); CALCIUM, SERUM 8.3 mg/dL (8.5-10.1); PHOSPHORUS 3.2 mg/dL (2.5-4.9); POTASSIUM 3.2 mmol/L (3.5-5.1); TOTAL PROTEIN, SERUM 6.3 g/dL (6.4-8.2)
[2021-09-28] MEDS: PANTOPRAZOLE 40 MG TABLET.DR PO SCH (08:37)
[2021-09-28] MEDS: POTASSIUM CL. PREMIX PERIPHER. 50 ML IV SCH ×4 (08:38→19:22)
[2021-09-28] MEDS: ONDANSETRON HCL/PF 4 MG/2 ML VIAL IVP PRN ×3 (08:59→23:02)
[2021-09-28] MEDS: VENLAFAXINE 37.5 MG TABLET PO SCH (18:47)
--- NOTE | 2021-09-28 18:52 | NUR ---
MS RN CLOSING NOTES PATIENT ON BED RESTING AND ALERT/ORIENTED X4. ON ROOM AIR TOLERATING WELL. NO SOB NOTED. NOT IN DISTRESS. WITH NG-TUBE ON LOW INTERMITTENT SUCTION ON LEFT NARES WITH BROWNISH OUTPUT. WITH NO COMPLAINTS OF PAIN OR DISCOMFORT AT THIS TIME. WITH IV ACCESS AT RIGHT AC G20 WITH NS AT 75ML/HR INFUSING WELL. DUE MEDS GIVEN. SAFETY MEASURES IN PLACED. CALL LIGHT WITHIN REACH. BED ON LOWEST LOCKED POSITION, SIDE RAILS UP X2. WILL ENDORSE TO NEXT SHIFT FOR BONILLA.
[2021-09-28 20:00] VITALS: BP 141/75
--- NOTE | 2021-09-28 20:00 | NUR ---
RECEIVED PATIENT IN BED, ALERT AND ORIENTED X4, NG TUBE DISCONTINUED, UPGRADED DIET TO FULL LIQUID DIET, REPORTED HAVING NAUSEA, NO VOMITING, KEPT SAFE, WILL CONTINUE TO MONITOR.
[2021-09-28 20:40] VITALS: BP 141/75
[2021-09-29] MEDS: PIPERACILLIN /TAZOBACTAM 3.375 G in IV D5W 100 ML IV SCH ×3 (03:58→19:56)
[2021-09-29] MEDS: IV NS 0.9% 1,000 ML IV PRN (03:58)
[2021-09-29] MEDS: HYDROMORPHONE 1 MG/1 ML DISP.SYRIN IV PRN ×4 (04:12→19:50)
--- NOTE | 2021-09-29 07:00 | NUR ---
MS RN OPENING NOTES PATIENT LAYING IN BED, A/O X 4, TOLERATING WELL ON ROOM AIR WITH NO S/S OF RESPIRATORY DISTRESS. NO COMPLAINTS OF PAIN OR DISCOMFORT AT THIS TIME. BREATHING EVEN AND UNLABORED. PATIENT IV LINES CLEAN, INTACT, AND FLUSHING WELL. SAFETY MEASURES IN PLACE: BED IN LOWEST LOCKED POSITION, SIDE RAILS UP X 2, CALL LIGHT WITHIN REACH. WILL CONTINUE TO MONITOR.
--- NOTE | 2021-09-29 07:00 | NUR ---
ALERT/ORIENTED X4, ROOM AIR, EPIGASTRIC PAIN, NG TUBE DISCONTINUED, FULL LIQUID DIET, EPISODES OF NAUSEA, NO VOMITING, ZOFRAN GIVEN X1, DILAUDID 1 MG Q3HRS WITH ADEQUATE RELIEF, GIVEN ROUND THE CLOCK, ENCOURAGE AMBULATION, ZOSYN Q8HRS, ANTIEMETICS.
[2021-09-29] MEDS: PANTOPRAZOLE 40 MG TABLET.DR PO SCH (07:54)
[2021-09-29 08:27] VITALS: BP_SYST 122; BP_SYST 151; BP_DIAS 67; BP_DIAS 68
[2021-09-29 08:40] LABS: CALCIUM, SERUM 8.5 mg/dL (8.5-10.1); CREATININE 0.8 mg/dL (0.6-1.3); POTASSIUM 3.6 mmol/L (3.5-5.1)
[2021-09-29] MEDS: VENLAFAXINE 37.5 MG TABLET PO SCH (08:52)
[2021-09-29] MEDS: ONDANSETRON HCL/PF 4 MG/2 ML VIAL IVP PRN ×2 (10:46→22:21)
--- NOTE | 2021-09-29 10:54 | NUR ---
MS RN NOTE PATIENT NOTED WITH 9/10 LEFT ABDOMINAL PAIN AND NAUSEA, REQUESTING MEDICATION. 1 MG DILAUDED IVP AND 4 MG ZOFRAN IVP ADMINISTERED ORDERED. WILL CONTINUE TO MONITOR FOR S/S/S OF PAIN AND NAUSEA.
--- NOTE | 2021-09-29 19:00 | NUR ---
MS RN CLOSING NOTES PATIENT LAYING IN BED, A/O X 4, TOLERATING WELL ON ROOM AIR WITH NO S/S OF RESPIRATORY DISTRESS. NO COMPLAINTS OF PAIN OR DISCOMFORT AT THIS TIME. BREATHING EVEN AND UNLABORED. PATIENT PERIPHERAL IV LINES CLEAN, INTACT, AND FLUSHING WELL. SAFETY MEASURES IN PLACE: BED IN LOWEST LOCKED POSITION, SIDE RAILS UP X 2, CALL LIGHT WITHIN REACH. WILL ENDORSE TO APPLICATIONS ADMINISTRATOR FOR BONILLA.
--- NOTE | 2021-09-29 19:56 | NUR ---
MS RN OPENING NOTES RECEIVED PATIENT IN BED, AWAKE, ALERT AND ORIENTED X4, ABLE TO MAKE NEEDS KNOWN. TOLERATING WELL ON ROOM AIR WITH NO S/SX OF RESPIRATORY DISTRESS. BREATHING EVEN AND UNLABORED. PATIENT C/O PAIN ON A SCALE OF 9/10 ON ABDOMINAL AREA MEDICATED WITH PRN DILAUDID ORDERED. WILL CONTINUE TO MONITOR THE EFFECTIVENESS OF THE MEDICATION. IV ACCESS ON LEFT WRIST PATENT, INTACT AND FLUSHING WELL. SAFETY MEASURES IN PLACE: BED IN LOWEST LOCKED POSITION, SIDE RAILS UP X 2, CALL LIGHT WITHIN REACH. WILL CONTINUE TO MONITOR THROUGHOUT THE SHIFT.
[2021-09-29 20:00] VITALS: BP 116/77
[2021-09-30] MEDS: HYDROMORPHONE 1 MG/1 ML DISP.SYRIN IV PRN ×5 (00:06→15:41)
[2021-09-30] MEDS: PIPERACILLIN /TAZOBACTAM 3.375 G in IV D5W 100 ML IV SCH ×2 (03:31→11:47)
[2021-09-30] MEDS: ONDANSETRON HCL/PF 4 MG/2 ML VIAL IVP PRN ×2 (05:12→15:41)
--- NOTE | 2021-09-30 06:59 | NUR ---
MS RN CLOSING NOTES PATIENT IN BED, ASLEEP, AROUSES EASILY. TOLERATING WELL ON ROOM AIR WITH NO S/SX OF RESPIRATORY DISTRESS. BREATHING EVEN AND UNLABORED. NO C/O PAIN OR DISCOMFORT AT THIS TIME. IV ACCESS ON LEFT WRIST PATENT, INTACT AND FLUSHING WELL. SAFETY MEASURES IN PLACE: BED IN LOWEST LOCKED POSITION, SIDE RAILS UP X 2, CALL LIGHT WITHIN REACH. WILL ENDORSE TO AM SHIFT FOR CONTINUITY OF CARE.
--- NOTE | 2021-09-30 07:58 | NUR ---
MS RN OPENING NOTES RECEIVED PATIENT IN BED, ASLEEP, AROUSES EASILY. ON ROOM AIR WITH NO S/SX OF RESPIRATORY DISTRESS. BREATHING EVEN AND UNLABORED. NO C/O PAIN OR DISCOMFORT AT THIS TIME. IV ACCESS ON LEFT WRIST PATENT, INTACT AND FLUSHING WELL. SAFETY PRECAUTIONS IN PLACE: BED IN LOWEST LOCKED POSITION, SIDE RAILS UP X 2, CALL LIGHT WITHIN REACH. WILL CONTINUE TO MONITOR PATIENT.
[2021-09-30 08:10] LABS: CALCIUM, SERUM 8.3 mg/dL (8.5-10.1); CREATININE 0.9 mg/dL (0.6-1.3); PHOSPHORUS 3.4 mg/dL (2.5-4.9); POTASSIUM 3.2 mmol/L (3.5-5.1)
[2021-09-30 08:12] LABS: BASOPHILS % (AUTO) 0.7 % (0.0-2.0); EOSINOPHILS % (AUTO) 4.6 % (0.0-6.0); HEMATOCRIT 34 % (39-51); HEMOGLOBIN 9.6 g/dL (13.5-17.5); LYMPHOCYTES % (AUTO) 33.6 % (20.0-44.0); MEAN CORPUSCULAR HGB CONC 28 g/dl (31.0-36.0); MEAN CORPUSCULAR VOLUME 63 fL (80-96); MONOCYTES # (AUTO) 0.3 K/uL (0.1-1.30); MONOCYTES % (AUTO) 8.9 % (2.0-12.0); NEUTROPHILS # (AUTO) 1.6 K/uL (1.8-8.9); NEUTROPHILS % (AUTO) 52.2 % (43.0-81.0); PLATELET COUNT (AUTO) 184 K/uL (150-450); RED BLOOD CELL COUNT(AUTO) 5.35 MIL/uL (4.5-6.0)
[2021-09-30] MEDS: PANTOPRAZOLE 40 MG TABLET.DR PO SCH (08:22)
[2021-09-30] MEDS: VENLAFAXINE 37.5 MG TABLET PO SCH (08:22)
[2021-09-30 08:32] LABS: MAGNESIUM 1.9 mg/dL (1.8-2.4)
[2021-09-30 08:46] VITALS: BP 110/69
[2021-09-30] MEDS: POTASSIUM CHLORIDE 20 MEQ TAB.PRT.SR PO SCH ×2 (09:33→10:52)
[2021-09-30] MEDS ORDERED: PRED20TA PO (11:32)
[2021-09-30 16:22] VITALS: BP 125/81
--- NOTE | 2021-09-30 18:00 | NUR ---
MS DUMPMAN NOTES PATIENT DISCHARGED HOME IN MEDICALLY STABLE CONDITION. PATIENT A/O X4 ABLE TO MAKE NEEDS KNOWN. ALL DISCHARGE PAPERWORK READY AND PHYSICIAN INSTRUCTIONS PROVIDED TO PATIENT; PATIENT VERBALIZED UNDERSTANDING AND SIGNED PAPERWORK. BELONGINGS ACCOUNTED FOR AND FORM SIGNED WELL. IV ACCESS REMOVED PRIOR TO PATIENT LEAVING THE FLOOR. PATIENT LEFT THE UNIT AMBULATORY ACCOMPANIED BY HIS MOTHER AT 1750
== END 2021-09-30 17:50 | disposition home or self-care (01) | DRG 387 ==
LOC: ER 22:05 → TRANSITION 09-27 07:35 → MED 09-27 08:06
PROVIDERS: ADMIT Nurse Practitioner Acute Care; ATTEND Nurse Practitioner Acute Care
DX: K50.912 Crohn's disease, unspecified, with intestinal obstruction (principal); F32.A Depression, unspecified; K21.9 Gastro-esophageal reflux disease without esophagitis; Z90.49 Acquired absence of other specified parts of digestive tract; Z98.890 Other specified postprocedural states; Z20.822 Contact with and (suspected) exposure to COVID-19
CPT/HCPCS: 36415; 71045-TC; 74018; 74250-TC; 80048-TC; 80053-TC; 80076-TC; 81001; 83690-TC; 83735-TC; 84100-TC; 84484-TC; 85025-TC; 85730-TC; 87081-TC; C9803; G0378; J1170; J2270; J2405; J2543; J3480; J7030; J7050; J7060; Q9963